=== PATIENT | female | born 1980 | race Caucasian/White ===

== ENCOUNTER 2017-12-29 13:10 | Emergency (ER) | payer OTHER, SELFPAY ==
[2017-12-29 13:38] LABS: Bilirubin Negative (Negative); Blood, Urine Negative (Negative); Glucose, Urine (Dipstick) Negative (Negative); Leukocyte Trace (Negative); Nitrite Negative (Negative); Protein, Urine (Dipstick) Negative (Neg-Trace); Specific Gravity, Urine 1.015 (1.005-1.030); pH, Urine 7.5 (5.0-9.0)
[2017-12-29 13:40] LABS: Bacteria/HPF 1+ HPF (None Seen); Clarity Cloudy (Clear); RBC/HPF 0-3 HPF (0-3); Squamous Epithelial 0-3 HPF (0-3); WBC/HPF 0-3 HPF (0-3)
[2017-12-29 13:41] LABS: Crystals/HPF 2+ AMORPH PHOS HPF (Negative)
[2017-12-29 13:41] LABS: Pregnancy Test - Urine (BHCG) Negative (Negative); Pregu Control Background? CLEAR/WHITE (CLR/WHITE); Pregu Control Bar Appear? YES (CONTROL BAR); Specific Gravity 1.015 (1.002-1.036)
== END 2017-12-29 13:57 | disposition home or self-care (01) ==
LOC: MADERS 13:10
DX: N30.00 Acute cystitis without hematuria (principal); I34.1 Nonrheumatic mitral (valve) prolapse
CPT/HCPCS: 81003; 81015; 81025; 99283

== ENCOUNTER 2018-10-17 17:23 | Emergency (ER) | payer SELFPAY ==
[2018-10-17] MEDS ORDERED: Ibuprofen 200 MG TAB ONE (18:02)
--- NOTE | 2018-10-17 18:04 | RAD ---
CHEST TWO VIEWS: HISTORY: Cough. COMPARISON: 07/09/2017 FINDINGS: Normal cardiac silhouette. Pulmonary vessels and hilum are normal. Costophrenic angles are clear. No mass. No consolidation. No pneumothorax or osseous abnormalities. Slight rightward curvature of the distal thoracic and upper lumbar spine is presumed to be due to pat ient position. IMPRESSION: No acute cardiopulmonary process. POS: PPP
== END 2018-10-17 18:00 | disposition home or self-care (01) ==
LOC: MADERS 17:23
DX: J01.90 Acute sinusitis, unspecified (principal)
CPT/HCPCS: 71046

== ENCOUNTER 2022-04-29 18:52 | Emergency (ER) | payer MEDICARE, SELFPAY ==
[2022-04-29] MEDS ORDERED: Acetaminophen 500 MG TAB ONE (19:09)
[2022-04-29 19:30] LABS: Prothrombin Time 13.7 sec (12.0-14.7)
[2022-04-29 19:31] LABS: PTT 28.7 sec (22.9-36.1)
[2022-04-29 19:32] LABS: #Basophils 0.1 thou/uL (0.0-0.2); #Eosinphils 0.5 thou/uL (0.0-0.7); #Lymphocytes 2.6 thou/uL (1.20-3.40); #Monocytes 0.5 thou/uL (0.11-0.59); #Neutrophils 5.6 thou/uL (1.40-6.50); %Eosinophils 5.3 % (0.0-10.0); %Monocytes 5.7 % (0.0-10.0); Mean Corpuscular HGB CONC 31.8 g/dL (32.0-36.0); Mean Corpuscular Hemoglobin 26.2 pg (27.0-31.0); Mean Corpuscular Volume 82.5 fL (78.0-98.0); Mean Platelet Volume 10.3 fL (7.4-10.4); Platelet Count 274 thou/uL (130-400); RBC Distribution Width 12.6 % (11.5-14.5); Red Blood Cell (RBC) Count 4.95 mill/uL (4.20-5.40); White Blood Cell (WBC) Count 9.3 thou/uL (4.8-10.8)
== END 2022-04-29 19:50 | disposition home or self-care (01) ==
LOC: MADERS 18:52
DX: K64.4 Residual hemorrhoidal skin tags (principal)
CPT/HCPCS: 36415; 85025; 85610; 85730; 86900; 86901; 99283

== ENCOUNTER 2023-01-29 14:06 | Emergency (ER) | payer MEDICARE, OTHER | END 2023-01-29 14:58 | disposition home or self-care (01) | LOC: MADERS 14:06 | DX: R05.9 Cough, unspecified (principal); R09.81 Nasal congestion; R50.9 Fever, unspecified; R11.0 Nausea; R51.9 Headache, unspecified | CPT/HCPCS: 99283 ==

== ENCOUNTER 2024-10-06 16:32 | Emergency (ER) | payer OTHER ==
[2024-10-06 17:16] LABS: Bilirubin Negative (Negative); Blood, Urine Negative (Negative); Glucose, Urine (Dipstick) Negative (Negative); Ketone, Urine Negative (Negative); Leukocyte Negative (Negative); Nitrite Negative (Negative); Protein, Urine (Dipstick) Negative (Neg-Trace); Urobilinogen 0.2 mg/dL (Less than 2); pH, Urine 5.5 (5.0-9.0)
[2024-10-06 17:17] LABS: Clarity Hazy (Clear)
[2024-10-06 17:18] LABS: Bacteria/HPF Rare-Few HPF (None Seen); CAUTI Indications for Culture Dysuria,urgency,freq; RBC/HPF 0-3 HPF (0-3); Squamous Epithelial 0-3 HPF (0-3); WBC/HPF 0-3 HPF (0-3)
[2024-10-06 17:19] LABS: Urine Culture Reflex No No
== END 2024-10-06 19:25 | disposition left against medical advice (07) ==
LOC: MADERS 16:32
DX: Z53.21 Procedure and treatment not carried out due to patient leaving prior to being seen by health care provider (principal)
CPT/HCPCS: 81001